=== PATIENT | male | born 1940 | race Caucasian/White ===

== ENCOUNTER 2016-11-22 12:51 | Inpatient (IN) | payer OTHER, MEDICARE ==
[~2016-11-22] VITALS: Ht 157.5 cm; Wt 77.2 kg
[2016-11-22 14:44] VITALS: BP 120/65
[2016-11-22 16:24] LABS: HEMATOCRIT 39.1 % (38.0-50.0); MCH 31.9 PG (29.0-34.0); MCHC 34.8 G/DL (30.0-36.0); MCV 91.8 FL (86-99); MEAN PLAT.VOLUME 9.9 uM^3 (9.0-12.4); PLATELET COUNT 286 K/uL (156-360); RBC DIS.WIDTH-CV 12.3 % (11.8-14.6); RBC DIS.WIDTH-SD 40.6 % (39-53); RED BLOOD COUNT 4.26 M/uL (4.00-5.50); WHITE BLOOD COUNT 7.3 K/uL (4.1-10.2)
[2016-11-22 16:34] LABS: CHLORIDE 100 mEq/L (99-109); POTASSIUM 4.6 mEq/L (3.7-5.4); SODIUM 131 mEq/L (136-147)
[2016-11-22 16:36] LABS: GLUCOSE 151 mg/dL (70-99)
[2016-11-22 16:37] LABS: ANION GAP 13 MEQ/L (2-14)
[2016-11-22 16:38] LABS: TOTAL BILIRUBIN 0.7 mg/dL (0.0-1.0)
[2016-11-22 16:40] LABS: ALKALINE PHOSPHATASE 76 IU/L (3-129); GFR ESTIMATE (CALCULATED) > 59 mL/min/
[2016-11-22 16:41] LABS: UREA NITROGEN (BUN) 23 mg/dL (9-23)
[2016-11-22] MEDS ORDERED: NOVOLOG PE100 UNITS/ SC (19:22)
[2016-11-22] MEDS ORDERED: LEVAQUIN500 MG PO (19:22)
[2016-11-22] MEDS ORDERED: ZESTRIL20 MG PO (19:23)
[2016-11-22] MEDS ORDERED: TOPROL XL25 MG PO (19:23)
[2016-11-22] MEDS ORDERED: ZOFRAN4 MG/2 ML IV (19:24)
[2016-11-22] MEDS ORDERED: PRAVACHOL40 MG PO (19:24)
[2016-11-22] MEDS ORDERED: ZYLOPRIM100 MG PO (19:25)
[2016-11-22] MEDS ORDERED: TYLENOL REGULA325 MG PO (19:25)
[2016-11-22] MEDS ORDERED: NORVASC5 MG PO (19:25)
[2016-11-22] MEDS ORDERED: PEPCID20 MG PO (19:26)
[2016-11-22 20:58] LABS: POINT-OF-CARE METER ID UU14174215
[2016-11-23 00:13] VITALS: BP 144/72
[2016-11-23 06:04] VITALS: BP 153/65
[2016-11-23 07:47] LABS: POINT-OF-CARE METER ID UU14174215; POINT-OF-CARE USER ID AHSSSJB31
[2016-11-23 11:31] LABS: POINT-OF-CARE METER ID UU14174215; POINT-OF-CARE USER ID AHSSSJB31
[2016-11-23 16:16] VITALS: BP 115/56
[2016-11-23 16:56] LABS: POINT-OF-CARE METER ID UU14174215
[2016-11-23 21:18] LABS: POINT-OF-CARE METER ID UU14174215
[2016-11-24 04:00] VITALS: BP 110/56
[2016-11-24 07:57] VITALS: BP 120/62
[2016-11-24 08:02] LABS: POINT-OF-CARE METER ID UU14174215; POINT-OF-CARE USER ID AHSSSJB31
[2016-11-24 11:26] LABS: POINT-OF-CARE METER ID UU14174215; POINT-OF-CARE USER ID AHSSSJB31
[2016-11-24 15:53] VITALS: BP 114/59
[2016-11-24 16:31] LABS: POINT-OF-CARE METER ID UU13113720
[2016-11-24 21:39] LABS: POINT-OF-CARE METER ID UU13113720
[2016-11-25 06:04] VITALS: BP 119/59
[2016-11-25 06:44] LABS: POINT-OF-CARE METER ID UU14174215; POINT-OF-CARE USER ID ENVGAF
[2016-11-25 11:17] LABS: POINT-OF-CARE METER ID UU14174215; POINT-OF-CARE USER ID ENVGAF
[2016-11-25 14:48] VITALS: BP 102/57
[2016-11-25 16:33] LABS: POINT-OF-CARE METER ID UU14174215
[2016-11-25 20:57] LABS: POINT-OF-CARE METER ID UU14174215
[2016-11-26 05:44] VITALS: BP 105/55
[2016-11-26 06:58] LABS: POINT-OF-CARE METER ID UU14174215; POINT-OF-CARE USER ID ENVGAF
[2016-11-26 11:20] LABS: POINT-OF-CARE METER ID UU14174215; POINT-OF-CARE USER ID ENVGAF
[2016-11-26 15:55] VITALS: BP 116/63
[2016-11-26 16:31] LABS: POINT-OF-CARE METER ID UU13113720
[2016-11-26 21:32] LABS: POINT-OF-CARE METER ID UU13113720; POINT-OF-CARE USER ID 610211320
[2016-11-27 05:36] VITALS: BP 111/63
[2016-11-27 07:21] LABS: POINT-OF-CARE METER ID UU14174215; POINT-OF-CARE USER ID AHSSSJB31
[2016-11-27 11:54] LABS: POINT-OF-CARE METER ID UU14174215; POINT-OF-CARE USER ID AHSSSJB31
[2016-11-27 15:28] VITALS: BP 100/55
[2016-11-27 16:33] LABS: POINT-OF-CARE METER ID UU13113720
[2016-11-27 21:14] LABS: POINT-OF-CARE METER ID UU13113720
[2016-11-28 06:07] VITALS: BP 142/70
[2016-11-28 06:37] LABS: ALKALINE PHOSPHATASE 62 IU/L (3-129); ANION GAP 11 MEQ/L (2-14); CHLORIDE 103 MEQ/L (99-109); GFR ESTIMATE (CALCULATED) > 59 mL/min/; GLUCOSE 110 mg/dL (70-99); POTASSIUM 4.1 MEQ/L (3.7-5.4); SAMPLE HEMOLYSIS CHECK 0; SAMPLE ICTERIC CHECK 0; SAMPLE LIPEMIA CHECK 0; SODIUM 137 MEQ/L (136-147); TOTAL BILIRUBIN 0.5 MG/DL (0.0-1.0); UREA NITROGEN (BUN) 19 mg/dL (9-23)
[2016-11-28 07:20] LABS: POINT-OF-CARE METER ID UU14174215; POINT-OF-CARE USER ID AHSSSJB31
[2016-11-28 11:51] LABS: POINT-OF-CARE METER ID UU14174215; POINT-OF-CARE USER ID AHSSSJB31
[2016-11-28 15:46] VITALS: BP 105/53
[2016-11-28 16:22] LABS: POINT-OF-CARE METER ID UU14174215
[2016-11-28 21:48] LABS: POINT-OF-CARE METER ID UU13113720
[2016-11-29 05:36] LABS: EOSINOPHIL (%) 2.6 % (0-5); EOSINOPHIL COUNT 0.1 K/uL (0-0.3); HEMATOCRIT 36.3 % (38.0-50.0); IMMATURE GRANULOCYTE (%) 0.2 % (0.0-0.7); MCH 31.4 PG (29.0-34.0); MCHC 33.6 G/DL (30.0-36.0); MCV 93.3 FL (86-99); MEAN PLAT.VOLUME 9.6 uM^3 (9.0-12.4); MONOCYTE (%) 10.9 % (3-12); MONOCYTE COUNT 0.6 K/uL (0-0.8); NEUTROPHIL (%) 49.5 % (45-76); NEUTROPHIL COUNT 2.7 K/uL (1.8-6.4); PLATELET COUNT 332 K/uL (156-360); RBC DIS.WIDTH-CV 12.5 % (11.8-14.6); RBC DIS.WIDTH-SD 42.3 % (39-53); RED BLOOD COUNT 3.89 M/uL (4.00-5.50); WHITE BLOOD COUNT 5.4 K/uL (4.1-10.2)
[2016-11-29 05:47] VITALS: BP 113/53
[2016-11-29 06:02] LABS: ALKALINE PHOSPHATASE 61 IU/L (3-129); ANION GAP 9 MEQ/L (2-14); CHLORIDE 103 MEQ/L (99-109); GFR ESTIMATE (CALCULATED) > 59 mL/min/; GLUCOSE 114 mg/dL (70-99); POTASSIUM 4.6 MEQ/L (3.7-5.4); SAMPLE HEMOLYSIS CHECK 0; SAMPLE ICTERIC CHECK 0; SAMPLE LIPEMIA CHECK 0; SODIUM 137 MEQ/L (136-147); TOTAL BILIRUBIN 0.5 MG/DL (0.0-1.0); UREA NITROGEN (BUN) 19 mg/dL (9-23)
[2016-11-29 07:21] LABS: POINT-OF-CARE METER ID UU13113720; POINT-OF-CARE USER ID AHSSSJB31
[2016-11-29 08:31] VITALS: BP 115/68
[2016-11-29 11:57] LABS: POINT-OF-CARE METER ID UU13113720; POINT-OF-CARE USER ID AHSSSJB31
[2016-11-29 15:32] VITALS: BP 105/56
[2016-11-29 16:12] LABS: POINT-OF-CARE METER ID UU14174215
[2016-11-29 21:24] LABS: POINT-OF-CARE METER ID UU14174215
[2016-11-30 05:40] VITALS: BP 122/58
[2016-11-30 07:30] LABS: POINT-OF-CARE METER ID UU14174215; POINT-OF-CARE USER ID AHSSSJB31
[2016-11-30 11:57] LABS: POINT-OF-CARE METER ID UU13113720
[2016-11-30 15:17] VITALS: BP 112/64
[2016-11-30 16:20] LABS: POINT-OF-CARE METER ID UU13113720
[2016-11-30 21:14] LABS: POINT-OF-CARE METER ID UU13113720
[2016-12-01 05:39] VITALS: BP 122/57
[2016-12-01 07:44] LABS: POINT-OF-CARE METER ID UU13113720
[2016-12-01 12:12] LABS: POINT-OF-CARE METER ID UU13113720; POINT-OF-CARE USER ID AHSSSJB31
[2016-12-01 15:48] VITALS: BP 118/61
[2016-12-01 16:12] LABS: POINT-OF-CARE METER ID UU13113720
[2016-12-01 21:05] LABS: POINT-OF-CARE METER ID UU13113720
[2016-12-02 04:40] VITALS: BP 139/63
[2016-12-02 05:41] LABS: HEMATOCRIT 34.6 % (38.0-50.0); MCH 30.8 PG (29.0-34.0); MCHC 32.9 G/DL (30.0-36.0); MCV 93.5 FL (86-99); MEAN PLAT.VOLUME 9.7 uM^3 (9.0-12.4); PLATELET COUNT 313 K/uL (156-360); RBC DIS.WIDTH-CV 12.7 % (11.8-14.6); RBC DIS.WIDTH-SD 43.1 % (39-53); WHITE BLOOD COUNT 5.5 K/uL (4.1-10.2)
[2016-12-02 06:12] LABS: ANION GAP 9 MEQ/L (2-14); CHLORIDE 105 MEQ/L (99-109); GFR ESTIMATE (CALCULATED) > 59 mL/min/; GLUCOSE 137 mg/dL (70-99); POTASSIUM 3.8 MEQ/L (3.7-5.4); SAMPLE HEMOLYSIS CHECK 0; SAMPLE ICTERIC CHECK 0; SAMPLE LIPEMIA CHECK 0; SODIUM 139 MEQ/L (136-147); UREA NITROGEN (BUN) 21 mg/dL (9-23)
[2016-12-02 07:23] LABS: POINT-OF-CARE METER ID UU13113720; POINT-OF-CARE USER ID AHSSSJB31
[2016-12-02 11:52] LABS: POINT-OF-CARE METER ID UU13113720; POINT-OF-CARE USER ID AHSSSJB31
[2016-12-02 16:05] VITALS: BP 129/61
[2016-12-02 16:42] LABS: POINT-OF-CARE METER ID UU13113720
[2016-12-02 22:04] LABS: POINT-OF-CARE METER ID UU14174215
[2016-12-03 05:18] VITALS: BP 126/61
[2016-12-03 07:16] LABS: POINT-OF-CARE METER ID UU13113720; POINT-OF-CARE USER ID AHSSSJB31
[2016-12-03 11:55] LABS: POINT-OF-CARE METER ID UU13113720; POINT-OF-CARE USER ID AHSSSJB31
[2016-12-03 15:35] VITALS: BP 117/58
[2016-12-03 16:16] LABS: POINT-OF-CARE METER ID UU13113720
[2016-12-03 21:09] LABS: POINT-OF-CARE METER ID UU14174215
[2016-12-04 05:40] VITALS: BP 142/67
[2016-12-04 07:38] LABS: POINT-OF-CARE METER ID UU13113720; POINT-OF-CARE USER ID AHSSSJB31
[2016-12-04 11:50] LABS: POINT-OF-CARE METER ID UU13113720; POINT-OF-CARE USER ID AHSSSJB31
[2016-12-04 15:24] VITALS: BP 121/64
[2016-12-04 16:30] LABS: POINT-OF-CARE METER ID UU14174215
[2016-12-04 21:36] LABS: POINT-OF-CARE METER ID UU13113720
[2016-12-05 05:55] VITALS: BP 125/62
[2016-12-05 07:35] LABS: POINT-OF-CARE METER ID UU13113720
[2016-12-05 10:52] LABS: POINT-OF-CARE METER ID UU13113720
[2016-12-05 15:46] VITALS: BP 122/64
[2016-12-05 16:43] LABS: POINT-OF-CARE METER ID UU13113720
[2016-12-05 21:18] LABS: POINT-OF-CARE METER ID UU13113720
[2016-12-06 05:39] VITALS: BP 128/61
[2016-12-06 07:33] LABS: POINT-OF-CARE METER ID UU13113720
[2016-12-06 11:32] LABS: POINT-OF-CARE METER ID UU13113720
[2016-12-06] MEDS ORDERED: ZESTRIL20 MG PO (13:02)
[2016-12-06] MEDS ORDERED: PRAVACHOL40 MG PO (13:02)
[2016-12-06] MEDS ORDERED: NORVASC5 MG PO (13:02)
[2016-12-06] MEDS ORDERED: ZYLOPRIM100 MG PO (13:02)
[2016-12-06] MEDS ORDERED: TOPROL XL25 MG PO (13:02)
== END 2016-12-06 15:00 | DRG 945 ==
LOC: 3WEST 12:51
PROVIDERS: Physical Medicine & Rehabilitation Pain Medicine; Psychiatry & Neurology Neurology
PROC: F07M0ZZ Range of Motion and Joint Mobility Treatment of Musculoskeletal System - Whole Body (ICD-10-PCS; principal; 2016-11-22)
DX: R41.3 Other amnesia (principal); J18.9 Pneumonia, unspecified organism; E22.2 Syndrome of inappropriate secretion of antidiuretic hormone; E11.65 Type 2 diabetes mellitus with hyperglycemia; R00.1 Bradycardia, unspecified; F07.81 Postconcussional syndrome; R26.2 Difficulty in walking, not elsewhere classified; Z74.09 Other reduced mobility; I10 Essential (primary) hypertension; D64.9 Anemia, unspecified; E78.00 Pure hypercholesterolemia, unspecified; Z79.4 Long term (current) use of insulin; S06.35 Traumatic hemorrhage of left cerebrum; S06.5X0S Traumatic subdural hemorrhage without loss of consciousness, sequela; S06.6X0S Traumatic subarachnoid hemorrhage without loss of consciousness, sequela; S06.2X0S Diffuse traumatic brain injury without loss of consciousness, sequela
CPT/HCPCS: 70450; 80048; 80053; 82306; 82607; 82746; 82948; 84443; 85025; 85027; 92526 GN; 96125 GN; 97110 GO; 97530 GP; 97532 GN; J1815